=== PATIENT | male | born 1995 | race Two or more races ===

== ENCOUNTER 2019-12-23 09:28 | Emergency (ER) | payer MEDICAID, OTHER ==
[~2019-12-23] VITALS: Ht 188 cm; Wt 83.9 kg
[2019-12-23 09:51] VITALS: BP 118/73
== END 2019-12-23 10:34 | disposition home or self-care (01) ==
LOC: ER 09:28
DX: J45.909 Unspecified asthma, uncomplicated (principal)
CPT/HCPCS: 71046